=== PATIENT | female | born 1985 | race African-American/Black ===

== ENCOUNTER 2022-03-07 20:53 | Inpatient (IN) | payer MEDICAID ==
[~2022-03-07] VITALS: Ht 170.2 cm; Wt 70.3 kg
[2022-03-07] MEDS ORDERED: NALOXONE HCL 0.4 MG/ML 1ML VIAL IM PRN (22:15)
[2022-03-07] MEDS ORDERED: METHYLERGONOVINE MALEATE 0.2 MG/ML IM PRN (22:15)
[2022-03-07] MEDS ORDERED: CARBOPROST TROMETHAMINE 250 MCG/ML AMPUL IM PRN (22:15)
[2022-03-07] MEDS ORDERED: OXYTOCIN 30 UNITS/500ML NS PMX 500 ML IV SCH (22:15)
[2022-03-07] MEDS: LACTATED RINGERS 1,000 ML IV SCH ×2 (22:39→22:55)
[2022-03-07] MEDS ORDERED: PREN-176 PO (23:07)
[2022-03-07 23:23] LABS: BASOPHILS % 0.2 % (0.0-2.0); EOSINOPHILS % 0.1 % (0.0-5.0); HEMATOCRIT. 38.3 % (36.0-48.0); HEMOGLOBIN. 12.7 g/dL (12.0-16.0); LYMPHOCYTES % 18.9 % (20.0-50.0); MEAN CORPUSCULAR HEMOGLOBIN 29.2 pg (28.0-32.0); MEAN PLATELET VOLUME 9.4 fl (7.4-10.4); MONOCYTES % 7.3 % (2.0-8.0); NEUTROPHILS % 73.5 % (40.0-76.0); PLATELET 194 x1000/uL (130-400); RED BLOOD CELL COUNT 4.35 mill/uL (4.2-5.4); RED CELL DISTRIBUTION WIDTH 14.4 % (11.6-14.6)
[2022-03-07 23:30] LABS: INR 0.9; PARTIAL THROMBOPLASTIN TIME 27.9 sec (23.4-31.0); PROTHROMBIN TIME 9.8 sec (9.6-11.0)
[2022-03-07 23:53] LABS: HEPATITIS B SURFACE ANTIGEN NEGATIVE
[2022-03-08 00:20] LABS: CLARITY URINE CLEAR (CLEAR); COLOR URINE YELLOW (YELLOW); KETONES URINE NEGATIVE (NEGATIVE); LEUKOCYTE ESTERASE URINE NEGATIVE (NEGATIVE); NITRITE URINE NEGATIVE (NEGATIVE); OCCULT BLOOD URINE NEGATIVE (NEGATIVE); PROTEIN URINE TRACE (NEGATIVE); SPECIFIC GRAVITY URINE 1.013 (1.005-1.030); UROBILINOGEN URINE 0.2 E.U./dL (0.2-1.0)
[2022-03-08 00:38] LABS: *AMPHETAMINES SCREEN URINE NEGATIVE (NEGATIVE); *BARBITURATES SCREEN URINE NEGATIVE (NEGATIVE); *BENZODIAZEPINES SCREEN URINE NEGATIVE (NEGATIVE); *COCAINE SCREEN URINE NEGATIVE (NEGATIVE); CANNABINOID URINE SCREEN NEGATIVE (NEGATIVE); METHADONE URINE SCREEN NEGATIVE (NEGATIVE); OPIATES URINE SCREEN NEGATIVE (NEGATIVE); PHENCYCLIDINE URINE SCREEN NEGATIVE (NEGATIVE)
[2022-03-08] MEDS: LACTATED RINGERS 1,000 ML IV SCH (07:08)
[2022-03-08] MEDS ORDERED: EPHEDRINE SULFATE 50MG/ML VIAL ONE (11:05)
[2022-03-08] MEDS ORDERED: OXYTOCIN 10 UNITS/ML 1ML ONE (11:05)
[2022-03-08] MEDS ORDERED: CEFAZOLIN SODIUM 1000MG/VIAL ONE (11:05)
[2022-03-08] MEDS ORDERED: MORPHINE SULFATE/PF 1MG/ML 10ML AMP ONE (11:05)
[2022-03-08] MEDS ORDERED: FENTANYL CITRATE/PF 50MCG/ML 5ML VIAL ONE ×2 (11:06→11:57)
[2022-03-08] MEDS ORDERED: KETAMINE HCL 50 MG/ML 10ML ONE (11:34)
[2022-03-08] MEDS ORDERED: MIDAZOLAM HCL 2 MG/2 ML VIAL ONE (11:50)
[2022-03-08] MEDS ORDERED: FENTANYL CITRATE/PF 50MCG/ML 2ML VIAL ONE (11:51)
[2022-03-08] MEDS ORDERED: DIPHENHYDRAMINE 50MG/ML VIAL IV PRN ×2 (12:00→14:45)
[2022-03-08] MEDS ORDERED: LABETALOL 5MG/ML SYR 20 MG/4 ML SYRINGE IV PRN (12:00)
[2022-03-08] MEDS ORDERED: BUTORPHANOL TARTRATE 2 MG/ML VIAL IV PRN ×2 (12:00→14:45)
[2022-03-08] MEDS ORDERED: ONDANSETRON HCL 4MG/2ML INJ IV PRN ×4 (12:00→14:45)
[2022-03-08] MEDS ORDERED: KETOROLAC 30MG/ML VIAL IV PRN (12:00)
[2022-03-08] MEDS ORDERED: HYDROMORPHONE HCL/PF 2MG/ML CPJ IV PRN ×3 (12:00→14:45)
[2022-03-08] MEDS ORDERED: MEPERIDINE HCL/PF 25MG/ML CPJ IV PRN (12:00)
[2022-03-08] MEDS ORDERED: NALOXONE HCL 0.4MG/ML VIAL IV PRN (12:15)
[2022-03-08] MEDS ORDERED: LANOLIN OINT 7GM TUBE TOP PRN (13:30)
[2022-03-08] MEDS ORDERED: BISACODYL 10MG SUPP PR PRN (13:30)
[2022-03-08] MEDS ORDERED: HYDROCODONE/ACETAMINOPHEN 5/325MG TABLET PO PRN (13:30)
[2022-03-08] MEDS ORDERED: IBUPROFEN 400MG TABLET PO PRN (13:30)
[2022-03-08] MEDS ORDERED: OXYTOCIN 30 UNITS/500ML NS PMX 500 ML IV SCH (13:30)
[2022-03-08] MEDS ORDERED: RHO(D) IMMUNE GLOBULIN 300 MCG/SYR IM PRN (13:30)
[2022-03-08] MEDS ORDERED: HEMORRHOIDAL SUPP PR PRN (13:30)
[2022-03-08] MEDS ORDERED: DIPHENHYDRAMINE 25MG CAPSULE PO PRN (13:30)
[2022-03-08] MEDS: KETOROLAC 30MG/ML VIAL IV PRN ×2 (14:51→22:08)
[2022-03-08 15:20] VITALS: BP 132/84
[2022-03-08 16:30] VITALS: BP 111/70
[2022-03-08 20:00] VITALS: BP 113/79
[2022-03-08] MEDS ORDERED: TETANUS, DIPHTHERIA, PERTUSSIS VAC/PF 0.5ML (>10YR OLD) IM ONE (20:00)
[2022-03-08] MEDS: MAGNESIUM/ALUMINUM HYDROXIDE/SIMETHICONE 30ML UDC PO SCH (20:44)
[2022-03-08] MEDS: SIMETHICONE 80MG TABLET CHEW PO SCH (20:45)
[2022-03-08] MEDS: DOCUSATE SODIUM 100MG CAPSULE PO SCH (20:45)
[2022-03-09 04:15] VITALS: BP 100/67
[2022-03-09] MEDS: KETOROLAC 30MG/ML VIAL IV PRN (04:23)
[2022-03-09 06:06] LABS: BASOPHILS % 0.2 % (0.0-2.0); EOSINOPHILS % 0.2 % (0.0-5.0); HEMATOCRIT. 25.4 % (36.0-48.0); HEMOGLOBIN. 8.6 g/dL (12.0-16.0); LYMPHOCYTES % 16.4 % (20.0-50.0); MEAN CORPUSCULAR HEMOGLOBIN 29.8 pg (28.0-32.0); MEAN CORPUSCULAR VOLUME 88.1 fL (81.0-99.0); MEAN PLATELET VOLUME 9.1 fl (7.4-10.4); MONOCYTES % 9.3 % (2.0-8.0); NEUTROPHILS % 73.9 % (40.0-76.0); PLATELET 141 x1000/uL (130-400); RED BLOOD CELL COUNT 2.88 mill/uL (4.2-5.4); RED CELL DISTRIBUTION WIDTH 14.1 % (11.6-14.6)
[2022-03-09 08:00] VITALS: BP 118/72
[2022-03-09] MEDS: MAGNESIUM/ALUMINUM HYDROXIDE/SIMETHICONE 30ML UDC PO SCH ×3 (09:22→21:05)
[2022-03-09] MEDS: FERROUS SULFATE 325MG TABLET PO SCH ×2 (09:22→14:56)
[2022-03-09] MEDS: PRENATAL VIT/FE FUMARATE/FA TABLET PO SCH (09:23)
[2022-03-09] MEDS: SIMETHICONE 80MG TABLET CHEW PO SCH ×3 (09:23→21:06)
[2022-03-09] MEDS: IBUPROFEN 800MG TABLET PO PRN ×2 (14:56→21:06)
[2022-03-09 16:00] VITALS: BP 112/76
[2022-03-09 19:30] VITALS: BP 118/73
[2022-03-09] MEDS: DOCUSATE SODIUM 100MG CAPSULE PO SCH (21:06)
[2022-03-10] MEDS: IBUPROFEN 800MG TABLET PO PRN ×3 (03:46→20:09)
[2022-03-10 04:00] VITALS: BP 109/66
[2022-03-10 09:15] VITALS: BP 122/88
[2022-03-10] MEDS: MAGNESIUM/ALUMINUM HYDROXIDE/SIMETHICONE 30ML UDC PO SCH ×2 (09:31→18:28)
[2022-03-10] MEDS: SIMETHICONE 80MG TABLET CHEW PO SCH ×2 (09:31→18:28)
[2022-03-10] MEDS: PRENATAL VIT/FE FUMARATE/FA TABLET PO SCH (09:32)
[2022-03-10] MEDS: FERROUS SULFATE 325MG TABLET PO SCH ×2 (09:32→18:28)
[2022-03-10 19:40] VITALS: BP 104/65
[2022-03-10] MEDS: DOCUSATE SODIUM 100MG CAPSULE PO SCH (20:08)
[2022-03-11 04:00] VITALS: BP 97/62
[2022-03-11 08:00] VITALS: BP 113/80
[2022-03-11] MEDS: FERROUS SULFATE 325MG TABLET PO SCH (08:14)
[2022-03-11] MEDS: PRENATAL VIT/FE FUMARATE/FA TABLET PO SCH (08:14)
[2022-03-11] MEDS: MAGNESIUM/ALUMINUM HYDROXIDE/SIMETHICONE 30ML UDC PO SCH (08:14)
[2022-03-11] MEDS: SIMETHICONE 80MG TABLET CHEW PO SCH (08:14)
[2022-03-11] MEDS ORDERED: IBUP-2030 MT (09:03)
== END 2022-03-11 12:30 | disposition home or self-care (01) | DRG 540 ==
LOC: UNDOADMOB 20:53 → 8 EST LDRP 20:53 → OBSVTOIN 20:58 → 8EST 03-08 19:37
PROVIDERS: ADMIT Obstetrics & Gynecology; ATTEND Obstetrics & Gynecology
PROC: 10D00Z1 Extraction of Products of Conception, Low, Open Approach (ICD-10-PCS; principal; 2022-03-08)
PROC: 0UB90ZZ Excision of Uterus, Open Approach (ICD-10-PCS; 2022-03-08)
DX: O69.4XX0 Labor and delivery complicated by vasa previa, not applicable or unspecified (principal); D62 Acute posthemorrhagic anemia; O90.81 Anemia of the puerperium; O34.13 Maternal care for benign tumor of corpus uteri, third trimester; Z20.822 Contact with and (suspected) exposure to COVID-19; Z3A.39 39 weeks gestation of pregnancy; Z37.0 Single live birth
CPT/HCPCS: 36415; 80305; 81003; 85025; 86592; 86703; 86762; 86850; 86900; 86920; 87340; 87426; 88304; 88307; 90715; 99281; G0378; J0690; J1885; J2250; J2274; J3010; J3490; A4315; J2590